=== PATIENT | male | born 1955 | race Caucasian/White ===

== ENCOUNTER 2024-03-29 08:37 | Day surgery (SDC) | payer MEDICARE, BC ==
[~2024-03-29] VITALS: Ht 182.9 cm; Wt 94.8 kg
[~2024-03-29 08:37] MED LIST: AMLO1TAB24 PO; ATOR40TA75 PO; CELE1CAP99 PO; FAMO20TA5 PO; FLUTISP; NS 1,000 ML IV ONE; SYNT150T PO
[2024-03-29] MEDS ORDERED: LIDOCAINE 2% 100MG/5ML SDV (FOR ANES.) As Ordered ONE (10:10)
[2024-03-29] MEDS ORDERED: propofoL 200 MG/20 ML VIAL As Ordered ONE (10:11)
[2024-03-29 11:16] VITALS: TEMP 97.7
[2024-03-29 11:35] VITALS: BP 150/76; O2SAT 98
== END 2024-03-29 11:49 | disposition home or self-care (01) ==
LOC: M OPP 08:37
PROVIDERS: ATTEND Internal Medicine Gastroenterology
DX: Z12.11 Encounter for screening for malignant neoplasm of colon (principal); Z86.010 Personal history of colon polyps; D12.2 Benign neoplasm of ascending colon; D12.5 Benign neoplasm of sigmoid colon; K64.8 Other hemorrhoids; K57.30 Diverticulosis of large intestine without perforation or abscess without bleeding; D03.9 Melanoma in situ, unspecified; I10 Essential (primary) hypertension; Z79.02 Long term (current) use of antithrombotics/antiplatelets; Z79.1 Long term (current) use of non-steroidal anti-inflammatories (NSAID); Z79.51 Long term (current) use of inhaled steroids; Z79.891 Long term (current) use of opiate analgesic; Z79.899 Other long term (current) drug therapy